=== PATIENT | male | born 2000 | race African-American/Black ===

== ENCOUNTER 2024-09-16 20:13 | Emergency (ER) | payer SELFPAY ==
[~2024-09-16] VITALS: Ht 188 cm; Wt 173.3 kg
[~2024-09-16 20:13] MED LIST: AMOXICILLIN500 MG PO
[2024-09-16 20:45] VITALS: PULSE 82; RESP 18; TEMP 97.6
[2024-09-16] MEDS ORDERED: CYCLOBENZAPRINE5 MG PO (21:29)
[2024-09-16] MEDS ORDERED: POLYMYXIN B-TMP10 ML OU (21:38)
[2024-09-16] MEDS: CYCLOBENZAPRINE HCL 10 MG TAB PO ONE (22:50)
[2024-09-16 23:55] VITALS: BP 165/77; PULSE 80; RESP 18; TEMP 98; O2SAT 96
== END 2024-09-16 23:55 | disposition home or self-care (01) ==
LOC: FSED 20:56
DX: M54.2 Cervicalgia (principal); H10.9 Unspecified conjunctivitis
CPT/HCPCS: 72125; 99283